=== PATIENT | female | born 1950 | race African-American/Black ===

== ENCOUNTER 2020-04-29 06:15 | Day surgery (SDC) | payer OTHER ==
[2020-04-28 11:41] LABS: COVID AG,FIA SOURCE NASOPHARYNGEAL
[~2020-04-29 06:15] MED LIST: CARV3 PO; CLON0.2T2 PO; CLOP75TA60 PO; GEMF600T90 PO; ISOS30TA92 PO; LEVAHFA IH; LIRA0.6P SQ; MONT-35 PO; PANT-31 PO; SITA25 PO; TIOT185 IH; VALS80TA2 PO
[2020-04-29] MEDS ORDERED: SODIUM CHLORIDE 0.9% 1,000 ML IV ONE (07:00)
[2020-04-29] MEDS ORDERED: SODIUM CHLORIDE 0.9% 1,000 ML ONE (07:21)
[2020-04-29 07:57] LABS: GLUCOMETER DEV NAME(LOC) SDS.; GLUCOSE,POINT OF CARE 163 MG/DL (70-110)
[2020-04-29] MEDS ORDERED: MIDAZOLAM HCL 2 MG/2 ML VIAL ONE (08:13)
[2020-04-29] MEDS ORDERED: FentaNYL CITRATE PF 100 MCG/2 ML VIAL ONE (08:13)
[2020-04-29] MEDS ORDERED: MethylPREDNISolone SOD SUCC 125 MG/2 ML VIAL ONE (08:31)
[2020-04-29] MEDS ORDERED: LIDOCAINE 2% 30 ML JELLY ONE (16:34)
[2020-04-29] MEDS ORDERED: LIDOCAINE 4% 50 ML SOLUTION ONE (16:34)
[2020-04-29] MEDS ORDERED: BENZOCAINE 20% 50 MCG/SPRAY 57 GM ONE (16:34)
[2020-04-29] MEDS ORDERED: OXYGEN THERAPY IH SCH (20:00)
== END 2020-04-29 11:00 | disposition home or self-care (01) ==
LOC: SURGERY 06:15
PROVIDERS: ATTEND Internal Medicine Critical Care Medicine
DX: J38.4 Edema of larynx (principal); B37.0 Candidal stomatitis; I10 Essential (primary) hypertension; E78.5 Hyperlipidemia, unspecified; G47.33 Obstructive sleep apnea (adult) (pediatric); J44.9 Chronic obstructive pulmonary disease, unspecified; E78.00 Pure hypercholesterolemia, unspecified; Z96.651 Presence of right artificial knee joint; M19.90 Unspecified osteoarthritis, unspecified site; Z98.890 Other specified postprocedural states; Z79.899 Other long term (current) drug therapy
CPT/HCPCS: 31623; 31624; 71045; 82962; 87015; 87070; 87101; 87205; 87206; 87220; 87426; 88108; 88184; 88185; 88312; 93005; C9803; J2250; J3010; J7030; J2930; Z7610